=== PATIENT | male | born 1990 | race Two or more races ===

== ENCOUNTER 2016-08-17 15:25 | Emergency (ER) | payer BC ==
--- NOTE | ~2016-08-17 | ER ---
PATIENT'S NAME: MIKAL FOFANA [facility] AGE: 25 Y [address] ROOM: [place] [address] LOCATION: [facility] ADMIT DATE: 08/17/2016 ER/Outpatient Report DISCHARGE DATE: 08/17/2016 FAMILY PHYSICIAN: PHYSICIAN, NO ATTENDING PHYSICIAN: Lynn Orellana TIME OF ARRIVAL: 1525 hours. TIME SEEN: 1547 hours. IDENTIFICATION: A 25-year-old male. CHIEF COMPLAINT: Dizziness and shaking. HISTORY OF PRESENT ILLNESS: The patient is a 25-year-old male, who was outside helping a friend move since noon today. He presents sweating and then he stops sweating, began shaking and his arms and upper extremities "cramp up." Currently, he is nervous and still shaking, but feeling a little bit better. He said he had a little slurred speech as this has had happened. No cloudy memory. No nausea or vomiting. No other problems or concerns. ALLERGIES: TO BENADRYL. CURRENT MEDICATIONS: Denies. MEDICAL PROBLEMS: Denies. No prior surgeries or hospitalizations. SOCIAL HISTORY: The patient lives here in [place]. Tobacco use, none. Alcohol use daily beer drug use, denies. REVIEW OF SYSTEMS: All systems reviewed and negative other than what is noted in the HPI. PHYSICAL EXAMINATION: VITAL SIGNS: Height 5 feet 8 inches, weight 63.9 kg, blood pressure 135/70, pulse 113, respirations 20, temperature 99.2, and saturations 99% on room air. PATIENT'S NAME: MIKAL FOFANA [facility] AGE: 25 Y [address] ROOM: [place] [address] LOCATION: [facility] ADMIT DATE: 08/17/2016 ER/Outpatient Report DISCHARGE DATE: 08/17/2016 FAMILY PHYSICIAN: PHYSICIAN, NO ATTENDING PHYSICIAN: Lynn Orellana GENERAL: A pleasant 25-year-old male in no acute distress. HEENT: Head: Normocephalic, atraumatic. Ears: TMs translucent. Eyes; pupils equal, round, and reactive to light and accommodation. Extraocular movements intact. Nose: Mucosa pink. No lesions or drainage. Mouth: No lesions. Pharynx benign. NECK: Supple. No lymphadenopathy. LUNGS: Clear to auscultation. Breath sounds are equal. No rhonchi, wheezes, or rales. HEART: Regular rate and rhythm. No murmur, rub, or gallop. ABDOMEN: Bowel sounds present. Soft, nondistended, nontender. SKIN: [place], warm, and dry. No lesions or rashes noted. NEUROLOGIC: The patient is alert and oriented x4. Cranial nerves 2 through 12 grossly intact. Motor strength 5/5 throughout. Sensation is intact to light touch. An IV was initiated. The patient was given 2 L of normal saline bolus. Hemoglobin 15, hematocrit 42.2, and platelets 290. White count 10.6 with a normal differential. Sodium 137, potassium 3.5 chloride 104 CO2 of 22, BUN 12, creatinine 1, blood sugar 111. Liver enzymes normal. CPK 137. UA is unremarkable. Specific gravity 1.010. IMPRESSION AND PLAN: Heat exhaustion. Plan 2 L of IV fluids were initiated. The patient's vital signs improved. Blood pressure 107/65, heart rate came down to 78, sats 100%, and respiratory rate 18. The patient will be discharged with a heat related illness handout. Fluids and rest. No alcohol. Avoid heat. Follow up with a primary care physician of choice. The patient's significant other understand and agree, and all questions have been answered. LYNN ORELLANA MD CAR/modl /[id number] d: 08/17/[id number] t: 08/20/16 0819, OUTPATIENT REPORT
[2016-08-17 15:58] LABS: BASOPHIL # 0.1 K/uL (0.0-0.2); BASOPHIL % 0.6 %; EOSINOPHIL # 0.1 K/uL (0.0-0.5); EOSINOPHIL % 1.2 %; HEMATOCRIT 42.2 % (37.0-53.0); IMMATURE GRANULOCYTE % 0.2 %; LYMPHOCYTE % 28.5 %; MCHC 35.5 gm/dL (32.0-36.5); MCV 87.2 fl (83.0-98.0); MONOCYTE % 9.6 %; MPV 9.8 fl (9.4-12.4); NEUTROPHIL # (ANC) 6.4 K/uL (1.4-9.0); NEUTROPHIL % 59.9 %; NRBC % 0 /100WBC (0-0.00); PLATELET COUNT 290 K/uL (150-450); RBC 4.84 M/uL (4.00-6.00); RDW-CV 11.9 % (11.9-14.6); WBC 10.6 K/uL (4.0-11.0)
[2016-08-17 16:15] LABS: ALBUMIN 4.4 gm/dL (3.5-5.0); ALK PHOS 76 IU/L (33-138); ALT 26 IU/L (12-78); ANION GAP 14.5 (10.0-19.0); AST 15 IU/L (10-40); BLOOD UREA NITROGEN 12 mg/dL (6-24); CALCIUM 9.3 mg/dL (8.5-10.5); CHLORIDE 104 mMol/L (96-110); CO2 22 mMol/L (22-32); CPK 137 IU/L (35-332); ESTIMATED GFR (MDRD EQUATION) > 60; POTASSIUM 3.5 mMol/L (3.7-5.1); SODIUM 137 mMol/L (135-145); TOTAL BILIRUBIN 0.8 mg/dL (0.0-1.5); TOTAL PROTEIN 7.8 g/dL (6.0-8.4)
[2016-08-17 16:23] LABS: BILIRUBIN URINE NEGATIVE (NEGATIVE); BLOOD URINE 25 /UL (NEGATIVE); COLOR URINE YELLOW (YELLOW); GLUCOSE URINE NEGATIVE (NEGATIVE); KETONE URINE NEGATIVE (NEGATIVE); LEUKOCYTES URINE NEGATIVE /UL (NEGATIVE); NITRITE URINE NEGATIVE (NEGATIVE); PH URINE 6.5 (4.0-8.0); PROTEIN URINE 15 mg/dL (NEGATIVE); TURBIDITY URINE CLEAR (CLEAR); UROBILINOGEN URINE 1 mg/dL (NORMAL)
[2016-08-17 16:36] LABS: WBC URINE 0-2 #/HPF (NEGATIVE)
[2016-08-17 16:37] LABS: BACTERIA URINE NEGATIVE (NEGATIVE); EPITHELIAL URINE RARE #/HPF (NEGATIVE); MUCUS URINE 2+ (NEGATIVE)
== END 2016-08-17 17:14 | disposition disaster alternative care site (69) ==
LOC: GMED 15:25
PROVIDERS: Family Medicine
DX: T67.5XXA Heat exhaustion, unspecified, initial encounter (principal); Z88.8 Allergy status to other drugs, medicaments and biological substances
CPT/HCPCS: J7030